=== PATIENT | female | born 1995 | race Caucasian/White ===

== ENCOUNTER 2016-04-18 21:36 | Emergency (ER) | payer BC ==
--- NOTE | 2016-04-18 22:35 | EDPHY ---
H & P Stated Complaint: Abd pain and vaginal bleeding for 3weeks Time Seen by Provider: 04/18/16 22:03 HPI/ROS: CHIEF COMPLAINT: abdominal pain HISTORY OF PRESENT ILLNESS: 20-year-old female presents emergency department complaining of intermittent suprapubic abdominal pinching pain that started today along with pain with tampon insertion. Patient states she has been on her period for 3 weeks. She missed 2 days of her control pills and was instructed to double up on her pills for 2 days which she did. She continues bleeding. She denies clots or heavy bleeding, reports it feels like a normal period. She is concerned maybe she left a tampon inside of her. She denies fevers or chills, no nausea or vomiting, no diarrhea. No pain with bowel movements. She reports a mild white vaginal discharge REVIEW OF SYSTEMS: A comprehensive 10 point review of systems is otherwise negative aside from elements mentioned in the history of present illness. Source: Patient Exam Limitations: No limitations - Personal History LMP (Females 10-55): Now Current Tetanus/Diphtheria Vaccine: Yes Current Tetanus Diphtheria and Acellular Pertussis (TDAP): Yes - Medical/Surgical History Hx Asthma: No Hx Chronic Respiratory Disease: No Hx Diabetes: No Hx Cardiac Disease: No Hx Renal Disease: No Hx Cirrhosis: No Hx Alcoholism: No Hx HIV/AIDS: No Hx Splenectomy or Spleen Trauma: No - Social History Smoking Status: Current some day smoker - Physical Exam Exam: Physical Exam Gen: Alert and Oriented, NAD HEENT: PERRL, moist mucous membranes NECK: no meningismus CV: regular rate and regular rhythm PULM: CTAB, no wheezes ABDOMEN: soft, mild suprapubic tenderness to palpation, BS present Pelvic exam: The vulva was normal no lesions. The vagina did not have significant discharge. The cervix was closed small amount of bleeding and no purulent drainage. The uterus was normal size and non tender. The adnexa had no masses and no tenderness. The exam was performed with a fitness director. No cervical motion tenderness BACK: No CVA tenderness NEURO: Neurologically grossly intact EXTREMITIES: normal appearing SKIN: no rash or break in skin on exposed skin PSYCH: answers questions appropriately. Constitutional: Initial Vital Signs Temperature (C) 37.1 C 04/18/16 21:40 Heart Rate 100 04/18/16 21:40 Respiratory Rate 18 04/18/16 21:40 Blood Pressure 129/80 H 04/18/16 21:40 O2 Sat (%) 96 04/18/16 21:40 O2 Delivery Mode Room Air Allergies/Adverse Reactions: No Known Allergies Allergy (Unverified 12/30/10 12:40) Home Medications: Medication Instructions Recorded Shaniqua 04/18/16 Wellbutrin Sr 04/18/16 Medical Decision Making ED Course/Re-evaluation: Urine dip obtained which is normal with no leukocytes, no nitrites, no blood. Urine is negative. Pelvic ultrasound has been ordered. Pelvic exam performed which is a normal exam, there is no foreign body retained, she has no cervical motion tenderness or evidence of pelvic inflammatory disease. 12am ultrasound shows no abnormality. Wet mount shows no evidence of yeast or bacterial vaginosis, no Trichomonas. Patient will be discharged home with a diagnosis of dysfunctional uterine bleeding. This is likely due to the manner in which she took her control pills this month. Patient has been given an OBGYN to follow up. She is given return precautions for fevers, vomiting, any new symptoms or concerns. Differential Diagnosis: Diagnosis considered but not limited to dysfunctional uterine bleeding, dysmenorrhea, ovarian cyst, tubo-ovarian abscess, retained tampon. - Data Points Laboratory Results: 04/18/16 23:49 Trichomonas (Wet Prep) RARE EPITHELIAL CELL Departure - Departure Disposition: Home, Routine, Self-Care Clinical Impression: Dysfunctional uterine bleeding Condition: Good Instructions: Dysfunctional Uterine Bleeding (ED) Additional Instructions: Take 600mg of ibuprofen every 8 hours with food for 3-5 days. Follow up with the obgyn for symptoms that are not improving. Return to the emergency department for any worsening symptoms, fevers, vomiting, any other concerns. Referrals: Daija Su DO [Doctor of Osteopathy] - As per Instructions (OBGYN transmission assembler)
[2016-04-18] MEDS ORDERED: PROPOFOL/EMULSION 500 MG/50 ML BOTTLE IV ONE (22:44)
[2016-04-19 01:03] VITALS: BP 121/77; PULSE 84; RESP 20; TEMP 98.1; O2SAT 98
== END 2016-04-19 00:45 | disposition home or self-care (01) ==
DX: N93.8 Other specified abnormal uterine and vaginal bleeding (principal); F17.200 Nicotine dependence, unspecified, uncomplicated
CPT/HCPCS: J2704

== ENCOUNTER 2017-03-06 11:54 | Day surgery (SDC) | payer BC ==
[~2017-03-06 11:54] MED LIST: ceFAZolin 2 GM/SWFI 2 GM/20 ML SYR IVP ONE
[2017-03-06] MEDS ORDERED: LIDOCAINE 1% 2 ML INJ ID PRN (12:29)
[2017-03-06] MEDS ORDERED: LR 1,000 ML IV ONE (12:29)
[2017-03-06] MEDS ORDERED: LIDOCAINE 1% 2 ML INJ ONE (12:32)
[2017-03-06] MEDS ORDERED: BUPIVACAINE 0.5% 30 ML SDV ONE (12:33)
[2017-03-06] MEDS ORDERED: DEXAMETHASONE 4 MG/ML VIAL ONE (12:33)
[2017-03-06] MEDS ORDERED: ROPIVACAINE HCL 20 MG/10 ML INJ EP ONE (12:33)
[2017-03-06] MEDS ORDERED: BACITRACIN 50,000 UNITS/10 ML SYR IRR ONE (12:34)
[2017-03-06 12:51] VITALS: PULSE 79
[2017-03-06] MEDS ORDERED: MIDAZOLAM 2 MG/2 ML VIAL ONE (13:21)
[2017-03-06] MEDS ORDERED: MIDAZOLAM 2 MG/2 ML VIAL IVP ONE (13:22)
--- NOTE | 2017-03-06 13:22 | PDANEPAE ---
ANE History of Present Illness Tinorowenajad TRISTIN Past Medical History - Cardiovascular History Hx Hypertension: No Hx Arrhythmias: No Hx Chest Pain: No Hx Coronary Artery / Peripheral Vascular Disease: No Hx CHF / Valvular Disease: No Hx Palpitations: No - Pulmonary History Hx COPD: No Hx Asthma/Reactive Airway Disease: No Hx Recent Upper Respiratory Infection: No Hx Oxygen in Use at Home: No Hx Sleep Apnea: No Sleep Apnea Screening Result - Last Documented: Negative - Neurologic History Hx Cerebrovascular Accident: No Hx Seizures: No Hx Dementia: No Neurologic History Comment: benign esssential tremor - Endocrine History Hx Diabetes: No - Renal History Hx Renal Disorders: No - Liver History Hx Hepatic Disorders: No - Neurological & Psychiatric Hx Hx Neurological and Psychiatric Disorders: Yes Neurological / Psychiatric History Comment: generalized anxiety. major depressive disorder. ocd. adhd - Cancer History Hx Cancer: No - Congenital Disorder History Hx Congenital Disorders: No - GI History Hx Gastrointestinal Disorders: No - Other Health History Other Health History: wears glasses- doesn't need all the time - Chronic Pain History Chronic Pain: Yes (hx of chronic back pain) - Surgical History Prior Surgeries: wisdom teeth removed ANE Review of Systems Review of Systems: - Exercise capacity METS (RN): 4 METS ANE Patient History - Allergies Allergies/Adverse Reactions: No Known Allergies Allergy (Verified 02/28/17 10:49) - Home Medications Home medications: home medication list seen and reviewed Home Medications: Abilify 04/18/16 [Last Taken 03/06/17 08:30] Herbals/Supplements -Info Only 02/28/17 [Last Taken 02/28/17] KLONOPIN 02/28/17 [Last Taken 03/03/17] Lexapro 02/28/17 [Last Taken 03/06/17 08:30] Ritalin 10mg (*) 02/28/17 [Last Taken 03/05/17] Wellbutrin Xl 02/28/17 [Last Taken 03/06/17 08:30] - NPO status NPO Since - Liquids (Date): 03/06/17 NPO Since - Liquids (Time): 10:30 NPO Since - Solids (Date): 03/05/17 NPO Since - Solids (Time): 19:00 - Smoking Hx Smoking Status: Heavy smoker - Family Anes Hx Family Hx Anesthesia Complications: none ANE Labs/Vital Signs - Vital Signs Blood Pressure: 120/72 Heart Rate: 79 Respiratory Rate: 16 O2 Sat (%): 93 Height: 177.8 cm Weight: 70.307 kg ANE Physical Exam - Airway Neck exam: FROM Mallampati Score: Class 1 Mouth exam: normal dental/mouth exam - Pulmonary Pulmonary: no respiratory distress - Cardiovascular Cardiovascular: regular rate and rhythym - ASA Status ASA Status: II ANE Anesthesia Plan Anesthesia Plan: MAC
--- NOTE | 2017-03-06 13:29 | PDHPUP ---
History & Physical Update H&P update statement: This history and physical update is based on an assessment of the patient which was completed after admission or registration (within 24 hours), but prior to the surgery/procedure.
[2017-03-06] MEDS ORDERED: PROPOFOL/EMULSION 500 MG/50 ML BOTTLE IV ONE (13:30)
[2017-03-06] MEDS ORDERED: LIDOCAINE 2% 5 ML SDV ONE (13:31)
[2017-03-06] MEDS ORDERED: ROPIVACAINE HCL 150 MG/30 ML INJ ONE (13:37)
[2017-03-06] MEDS ORDERED: PROPOFOL 200 MG/20 ML VIAL ONE (13:50)
[2017-03-06] MEDS ORDERED: fentaNYL 100 MCG/2 ML INJ IVP PRN (14:05)
[2017-03-06] MEDS ORDERED: ONDANSETRON 4 MG/2 ML VIAL IVP PRN (14:05)
[2017-03-06] MEDS ORDERED: NALOXONE HCL 0.4 MG/ML INJ IVP PRN (14:05)
[2017-03-06] MEDS ORDERED: OXYCODONE/APAP 5/325 TAB PO PRN (14:23)
--- NOTE | 2017-03-06 14:26 | POSTOPPROG ---
Post Op Note Date of Operation: 03/06/17 Surgeon: Essence Corey Anesthesiologist: delfin Shultz Pre-op Diagnosis: 5th hammertoe, contracture, deformity left foot Post-op Diagnosis: same Indication: pain Procedure: 5th Hammertoe reduction , left foot Inf/Abcess present in the surg proc area at time of surgery?: No EBL: Minimal Complications: none Specimen(s): none
--- NOTE | 2017-03-06 14:27 | POSTANESTH ---
Post Anesthetic Evaluation Cardiovascular Status: Normal, Stable Respiratory Status: Normal, Stable Level of Consciousness/Mental Status: Alert and Oriented, Mildly Sleepy, Arousable Pain Control: Adequate, Prn Tx Ordered Nausea/Vomiting Control: Adequate, Prn Tx Ordered Complications Possibly Related to Anesthesia: None Noted
[2017-03-06 15:16] VITALS: RESP 16; TEMP 98.6
[2017-03-06 16:53] VITALS: BP 124/68; O2SAT 97
--- NOTE | 2017-03-06 19:42 | GOP ---
[f rep st] OPERATIVE REPORT DATE OF OPERATION: 03/06/2017 SURGEON: Essence Corey DPM ANESTHESIA: IV sedation with local. ANESTHESIOLOGIST: Shan Shultz MD. PREOPERATIVE DIAGNOSIS: Painful 5th hammertoe deformity with contracture, left foot. POSTOPERATIVE DIAGNOSIS: Painful 5th hammertoe deformity with contracture, left foot. PROCEDURE PERFORMED: 5th hammertoe reduction, left foot. FINDINGS: INDICATIONS: The patient presented to the hospital approximately 1-1/2 hours prior to foot surgery a fter having been n.p.o. past midnight. The patient's preoperative history and physical and past stud ies were reviewed and there are no contraindications to the proposed procedure. A test was not performed since the patient is currently menstruating. DESCRIPTION OF PROCEDURE: The patient was taken to the OR room and placed on the OR table in supine position where the appropriate anesthetic agents were administered. This was supplemented with a loc al anesthetic block to the proximal 5th ray utilizing a total of 5 cc of 0.5% Marcaine plain with 5 c c of 1% lidocaine plain. Lower extremity was then prepped and draped in thoracic usual aseptic fashi on and covered with a sterile stockinette. A sterile pneumatic ankle tourniquet was applied and padd ed well underneath with Webril. Utilizing elevation overlying Esmarch bandage, the foot was exsangui nated and the tourniquet was inflated to a pressure of 225 mmHg. The foot was lowered to the orthope dic table. Attention was then directed to the dorsal aspect of the 5th proximal interphalangeal join t where the angulational deformity was evident, abduction deformity with dorsal contracture at the le bipin of the 5th proximal interphalangeal joint. An approximate 2 cm linear longitudinal incision was made centered over the proximal interphalangeal joint. The incision was deepened through the subcuta neous tissues to the level of the extensor tendon taking care to preserve the neurovascular structure s. Any bleeders were clamped and cauterized as needed. A transverse incision was made over the exte nsor tendon and the extensor tendon was freed from the dorsal aspect head of the proximal phalanx and retracted proximally. The capsular tissues were freed from the head of the proximal phalanx and the angulational deformity and hypertrophic bone to the head of the proximal phalanx of 5th digit was ob vious. Utilizing the sagittal saw perpendicular to the shaft of the phalanx, the head of the proxima l phalanx was resected, removing the angulational deformity and placed on the back table. The surgic al site was copiously irrigated with sterile saline with bacitracin solution. The extensor tendon an d capsular tissues were reapproximated with 3-0 Vicryl. On loading the forefoot, the 5th digit was n ow in a rectus position. The tourniquet was released. There was immediate capillary refill to all d igits and hemostasis. The subcutaneous tissues reapproximated with 4-0 Vicryl. The skin was reappro ximated with 4-0 Prolene utilizing interrupted horizontal mattress sutures. A mildly compressive dry sterile gauze dressing was applied with Xeroform, 4 x 4 gauze, Taylor, and Coban. The patient tolerated the procedure and anesthesia well and was transferred to recovery room with vit al signs stable and vascular status intact to the left lower extremity. In the recovery room the pat ient received postoperative oral and written home care instructions. The patient is instructed to we ar the Darco shoe at all times when weightbearing and is permitted to ambulate with the Darco shoe on . Patient is instructed on rest, elevation, use of the Cryo-Cuff for the next 48 to 72 hours. [facility] and instructed on its usage. The procedure went well without comp lications. She is scheduled to follow up in the office in 2 days. Please call the office earlier if any questions or problems should arise. /[id number]/MODL
== END 2017-03-06 15:46 | disposition home or self-care (01) ==
LOC: FSGY 11:54
PROVIDERS: ATTEND Podiatrist
PROC: 0LNW0ZZ Release Left Foot Tendon, Open Approach (ICD-10-PCS; principal; 2017-03-06 13:30)
PROC: 0QBR0ZZ Excision of Left Toe Phalanx, Open Approach (ICD-10-PCS; principal; 2017-03-06 13:30)
DX: M20.42 Other hammer toe(s) (acquired), left foot (principal); M79.675 Pain in left toe(s); F17.200 Nicotine dependence, unspecified, uncomplicated
CPT/HCPCS: J0690; J1100; J2250; J2704; J2795